=== PATIENT | female | born 1960 | race Caucasian/White ===

== ENCOUNTER 2019-08-21 09:07 | Emergency (ER) | payer MEDICARE, MEDICAID, SELFPAY ==
[2019-08-21 09:18] VITALS: BP 128/68; PULSE 79; RESP 20; TEMP 36.5; O2SAT 96
--- NOTE | 2019-08-21 09:39 | ED.URI ---
HPI - URI/Sore Throat General Chief Complaint: Upper Respiratory Infection Stated Complaint: wheezing Cough Time Seen by Provider: 08/21/19 09:39 Source: patient and RN notes reviewed Mode of arrival: ambulatory Limitations: no limitations History of Present Illness HPI Narrative: 59 year old female who presents to [facility] care accompanied by caregiver with complaints of cough, wheezing and shortness of breath for the past 2 days. Patient states that she was seen by Dr Vásquez about 10 days ago for upper respiratory infection and was given Zithromax and she completed the medication and her symptoms did get better. Patient states that for the past 2 days she has developed a cough with noted shortness of breath with exertion and productive cough of greenish yellow sputum and wheezing. Patient states that she has frontal headache with pressure note, denies any ear pain or sore throat, some clear nasal drainage stated, denies fever, chills, or sweats. MD elicited complaint: cough Related Data Home Medications Medication Instructions Recorded Confirmed aspirin [Aspirin Low Dose] 81 mg PO DAILY 08/21/19 08/21/19 bupropion HCl [Wellbutrin XL] 300 mg PO QAM 08/21/19 08/21/19 lisinopril 40 mg PO DAILY 08/21/19 08/21/19 montelukast [Singulair] 10 mg PO DAILY 08/21/19 08/21/19 [id number] K 1 tablet PO DAILY 08/21/19 08/21/19 [Adults Multivitamin] pregabalin [Lyrica] 100 mg PO HS 08/21/19 08/21/19 Allergies Allergy/AdvReac Type Severity Reaction Status Date / Time No Known Allergies Allergy Unknown Verified 08/21/19 10:25 Review of Systems Review of Systems: All systems reviewed & are unremarkable except as noted in HPI and below Constitutional: Constitutional: Reports as per HPI, Reports no additional constitutional complaints and Reports headache(s) Eyes: Eyes: Reports as per HPI and Reports no additional eye complaints Comments: PERRLA, EOMI no redness or discharge ENT: Reports system reviewed and no additional complaints, except as documented, Reports as per HPI, Reports headache(s), Reports nasal congestion, Reports nasal discharge, Reports sinus pain (frontal) and Reports sinus pressure Cardiovascular: Cardiovascular: Reports as per HPI, Reports no additional cardiovascular complaints, Reports dyspnea on exertion and Reports other (pedal edema) Respiratory: Respiratory: Reports as per HPI, Reports no additional respiratory complaints, Reports chest congestion, Reports cough, Reports dyspnea and Reports wheezing Gastrointestinal: Gastrointestinal: Reports as per HPI and Reports no additional gastrointestinal complaints Genitourinary: Genitourinary: Reports no additional female genitourinary complaints, Reports as per HPI and Reports urinary incontinence Musculoskeletal: Musculoskeletal: Reports no additional musculoskeletal complaints, Reports as per HPI, Reports back pain, Reports arthralgias and Reports other (back pain) Integumentary/Breasts: Skin/Breast: Reports system reviewed and no additional complaints, except as docu Neurologic: Reports system reviewed and no additional complaints, except as documented, Reports as per HPI, Reports radicular pain and Reports other (peripheral neuropathy legs) Psychiatric: Psychiatric: Reports no additional psychiatric complaints, Reports as per HPI, Reports anxiety and Reports depression Endocrine: Endocrine: Reports no additional endocrine complaints, Reports as per HPI and Reports fatigue Hematologic/Lymphatic: Hematologic/Lymphatic: Reports no additional hematologic/lymphatic complaints and Reports as per HPI Allergic/Immunologic: Allergic/Immunologic: Reports no additional allergic/immunologic complaints and Reports as per HPI [facility] Past Medical History Medical History (Updated 08/22/19 @ 20:23 by Elizabeth Crocker NP) Anxiety and depression Arthritis Degenerative disc disease Hypertension Migraines Neuropathy Obesity Surgical History Surgical History (Upda
[2019-08-21] MEDS: ALBUTEROL SULFATE NEB 2.5 MG/3 ML INH INHALATION (09:55)
[2019-08-21 10:20] VITALS: PULSE 80; O2SAT 97
== END 2019-08-21 10:35 | disposition home or self-care (01) ==
PROVIDERS: Emergency Provider Registered Nurse; PCP Internal Medicine
DX: J40 Bronchitis, not specified as acute or chronic (principal); J06.9 Acute upper respiratory infection, unspecified; M19.90 Unspecified osteoarthritis, unspecified site; I10 Essential (primary) hypertension; F32.9 Major depressive disorder, single episode, unspecified; G62.9 Polyneuropathy, unspecified
CPT/HCPCS: 94640; 99203; G0463